=== PATIENT | female | born 1975 | race Caucasian/White ===

== ENCOUNTER 2024-10-25 08:02 | Day surgery (SDC) | payer BC ==
[2024-10-21 16:18] VITALS: BMI 36.1
--- NOTE | 2024-10-25 07:38 | P.GSHP ---
History of Present Illness H&P Date: 10/25/24 CHIEF COMPLAINT: GERD and colon screen HISTORY OF PRESENT ILLNESS: The patient is a 48-year-old female who presents with gastroesophageal reflux disease and need for colon screen. Upper and lower endoscopy were offered for further evaluation and management. PAST MEDICAL HISTORY: Please see list. PAST SURGICAL HISTORY: Please see list. MEDICATIONS: Please see list. ALLERGIES: Please see list. SOCIAL HISTORY: No illicit drug use FAMILY HISTORY: No reports of Crohn disease or ulcerative colitis. REVIEW OF ORGAN SYSTEMS: CONSTITUTIONAL: No reports of fevers or chills. GI: Denies any blood in stools or constipation. PHYSICAL EXAM: VITAL SIGNS: Stable GENERAL: Well-developed pleasant in no acute distress. HEENT: No scleral icterus. Extraocular movements grossly intact. Moist buccal mucosa. NECK: Supple without lymphadenopathy. CHEST: Unlabored respirations. Equal bilateral excursions. CARDIOVASCULAR: Regular rate and rhythm. Distal 2+ pulses. ABDOMEN: Soft, nondistended. MUSCULOSKELETAL: No clubbing, cyanosis, or edema. ASSESSMENT: 1. Gastroesophageal reflux disease 2. Colon screen. PLAN: 1. Recommend proceeding with an upper and lower endoscopy Past Medical History Past Medical History: Diabetes Mellitus Additional Past Medical History / Comment(s): HAVING ABD PAIN AND SUE BOWEL ISSUES History of Any Multi-Drug Resistant Organisms: None Reported Past Surgical History: Bariatric Surgery, Section, Cholecystectomy, Hysterectomy Additional Past Surgical History / Comment(s): SERVAL LIPOMA'S REMOVED. C-SEC X 6. COLONOSCOPY/EGD Past Anesthesia/Blood Transfusion Reactions: No Reported Reaction Smoking Status: Never smoker - Past Family History Father Family Medical History: Cancer Medications and Allergies Home Medications Medication Instructions Recorded Confirmed Type Cyanocobalamin [Vitamin B-12 1,000 mcg SQ QMONTHLY 10/21/24 10/21/24 History Injection] Gabapentin 300 mg PO BID 10/21/24 10/21/24 History LORazepam [Ativan] 1 mg PO DAILY 10/21/24 10/21/24 History LORazepam [Lorazepam] 0.5 mg PO DAILY PRN 10/21/24 10/21/24 History Liraglutide [Victoza 3-Bud] 1.8 mg SQ DAILY 10/21/24 10/21/24 History Venlafaxine HCl [Effexor XR] 225 mg PO HS 10/21/24 10/21/24 History Zolpidem Tartrate [Zolpidem 12.5 mg PO HS 10/21/24 10/21/24 History Tartrate ER] metFORMIN HCL 500 mg PO BID 10/21/24 10/21/24 History Allergies Allergy/AdvReac Type Severity Reaction Status Date / Time No Known Allergies Allergy Verified 10/21/24 16:11
[2024-10-25] MEDS ORDERED: LIDOCAINE 1% (10MG/ML) FOR IV START INTRADERMA PRN (08:22)
[2024-10-25] MEDS: LACTATED RINGERS 1,000 ML IV ONE (08:29)
[2024-10-25 08:37] VITALS: TEMP 97.9
[2024-10-25 08:42] LABS: Glucose,Whole Blood 89 mg/dL (70-110)
[2024-10-25] MEDS: LACTATED RINGERS 1,000 ML IV SCH (08:45)
[2024-10-25] MEDS ORDERED: PROPOFOL 10 MG/ML 20 ML VIAL IV ONE (08:47)
[2024-10-25] MEDS ORDERED: LIDOCAINE 1% INJ 10MG/ML (20 ML MDV) ONE (08:47)
--- NOTE | 2024-10-25 09:33 | P.PCN ---
Date of Procedure: 10/25/24 Description of Procedure: PREOPERATIVE DIAGNOSIS: Gastroesophageal reflux disease. Dysphagia Morbid obesity. 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 INDICATIONS: The patient is a 48-year-old female who presents with a history of dysphagia, including atypical chest pain with history of gastric bypass. Benefits and risks of the procedure were described. Informed consent was obtained. DESCRIPTION: The patient was brought into the endoscopy suite and laid in the left lateral decubitus position. After a timeout was confirmed, the procedure was initiated. An Olympus gastroscope was passed along the posterior oropharynx down to the distal esophagus where the squamocolumnar junction was unremarkable. Moderate tertiary contractions consistent with presbyesophagus was found. Moderate spasms along the distal esophagus was also found. The gastric pouch was entered. A gastrojejunal stricture of 15 mm was found as the adult gastroscope was 9.5 mm in size. A Witget balloon dilator was placed through the scope. The scope was reentered for balloon dilation of the gastrojejunal anastomosis. Final insufflation from 15 to 20 mm was performed with a total of 2 minutes including of the distal esophageal spasm. The scope was advanced up to 60 cm from the incisors into the Nicola limb. The mucosa of the gastrojejunal anastomosis was intact. No chronic gastrojejunal marginal ulcer was encountered. Cold forcep biopsies obtained of the esophagus, gastric pouch, jejunum. Features of jejunal diverticulosis also identified. No full-thickness injury was encountered. The GI tract was desufflated. The patient tolerated the procedure well. FINDINGS: Squamocolumnar junction unremarkable at 37 cm. Stricture of approximately 15 mm encountered. Moderate to severe tertiary contractions for presbyesophagus Distal esophageal spasm identified Cold forcep biopsies obtained of esophagus, gastric pouch and jejunum Jejunal diverticulosis identified. Gastric polyps, 3 cm. No chronic gastrojejunal ulceration encountered. Successful balloon dilatation to 20 mm. RECOMMENDATIONS: Upper endoscopy as needed.
--- NOTE | 2024-10-25 09:37 | P.PCN ---
Date of Procedure: 10/25/24 Description of Procedure: PREOPERATIVE DIAGNOSIS: Colonoscopy screening POSTOPERATIVE DIAGNOSIS: Tubular adenoma transverse colon Internal hemorrhoids, grade 2 OPERATION: Colonoscopy to the ileocecal valve and appendiceal orifice, cecum Colonoscopy with hot snare polypectomy SURGEON: Tali Garcia MD. ANESTHESIA: MAC. INDICATIONS: The patient is an 48-year-old female who presents for colon sick screening. Benefits and risks were described and informed consent was obtained. DESCRIPTION OF PROCEDURE: The patient had undergone Suprep. The patient had been brought into the operating room and laid in the left lateral decubitus position. After adequate intravenous sedation, the rectum was examined with 2% lidocaine jelly. External hemorrhoids were encountered. The rectal tone was within normal limits. No lesions were palpated in the rectal vault. An Olympus colonoscope was advanced however limited due to a longer than colon. Multiple maneuvers including nba wall pressure was attempted to see the cecum. The prep was good. No sigmoid diverticulosis was encountered. Colonic polyps were found and removed. No evidence of focal colitis was found. Retroflexion of the scope demonstrated grade 2 internal hemorrhoids without active bleeding or inflammation. The colon was desufflated. The patient had tolerated the procedure well. Withdrawal time was over 6 minutes. FINDINGS: Aronchick preparation quality scale 2 (1-5) Internal hemorrhoids, grade 2 External hemorrhoids, grade 2. No arteriovenous malformations. Highly redundant sigmoid colon requiring abdominal wall pressure. Nonvisualization of the cecum. No large sigmoid diverticulosis Removal of 1 polyps: - Snare polypectomy transverse colon, 8 mm tubulovillous adenoma. No focal colitis. RECOMMENDATIONS: Repeat colonoscopy in 3 years, 2027 Recommend barium enema to capture cecum due to highly redundant colon Plan - Discharge Summary Discharge Rx Participant: No New Discharge Prescriptions: Continue Venlafaxine HCl [Effexor XR] 225 mg PO HS Zolpidem Tartrate [Zolpidem Tartrate ER] 12.5 mg PO HS LORazepam 0.5 mg PO DAILY PRN PRN Reason: Anxiety Gabapentin 300 mg PO BID Cyanocobalamin [Vitamin B-12 Injection] 1,000 mcg SQ QMONTHLY Liraglutide [Victoza 3-Bud] 1.8 mg SQ DAILY LORazepam [Ativan] 1 mg PO DAILY metFORMIN HCL 500 mg PO BID Discharge Medication List Cyanocobalamin [Vitamin B-12 Injection] 1,000 mcg SQ QMONTHLY 10/21/24 [History] Gabapentin 300 mg PO BID 10/21/24 [History] LORazepam 0.5 mg PO DAILY PRN 10/21/24 [History] LORazepam [Ativan] 1 mg PO DAILY 10/21/24 [History] Liraglutide [Victoza 3-Bud] 1.8 mg SQ DAILY 10/21/24 [History] Venlafaxine HCl [Effexor XR] 225 mg PO HS 10/21/24 [History] Zolpidem Tartrate [Zolpidem Tartrate ER] 12.5 mg PO HS 10/21/24 [History] metFORMIN HCL 500 mg PO BID 10/21/24 [History] [facility](s[facility]Ref[facility] [place] [place] [facility] (Keep your original appointment time) Patient Instructions/Handouts: Esophageal Dilation (DC), Diverticulosis Diet (GEN), Colorectal Polyps (GEN) Activity/Diet/Wound Care/Special Instructions: Repeat colonoscopy 3 years, 2027 Recommend barium enema due to elongated colon, cecum not captured Discharge Disposition: HOME SELF-CARE
[2024-10-25 09:38] LABS: Glucose,Whole Blood 93 mg/dL (70-110)
[2024-10-25 09:50] VITALS: RESP 14
[2024-10-25 10:05] VITALS: BP 107/71; PULSE 58
== END 2024-10-25 10:36 | disposition home or self-care (01) ==
LOC: ORWHC2ENDO 08:02
PROVIDERS: ATTEND Surgery Plastic and Reconstructive Surgery
DX: Z12.11 Encounter for screening for malignant neoplasm of colon (principal); R13.10 Dysphagia, unspecified; D12.3 Benign neoplasm of transverse colon; K64.1 Second degree hemorrhoids; K57.10 Diverticulosis of small intestine without perforation or abscess without bleeding; K22.4 Dyskinesia of esophagus; E11.9 Type 2 diabetes mellitus without complications; Z79.84 Long term (current) use of oral hypoglycemic drugs; E66.01 Morbid (severe) obesity due to excess calories; Z98.84 Bariatric surgery status
CPT/HCPCS: 45385; 43249; J2003; J2704; C1726; 88305

== ENCOUNTER → 2024-10-25 | Outpatient (CLI) | payer BC ==
[2024-10-25 15:19] LABS: HCT 34.5 % (37.2-46.3); HGB 10.3 g/dL (12.0-15.0); MCH 23.5 pg (27.0-32.0); MCHC 29.9 g/dL (32.0-37.0); MCV 78.8 FL (80.0-97.0); Mean Platelet Volume 12.2 FL (9.5-12.2); NRBC Per 100 WBC 0 X 10*3/uL (0.00-0.01); Platelet Count 242 X 10*3/uL (140-440); RBC 4.38 X 10*6/uL (4.10-5.20); RDW 16.7 % (11.5-14.5); WBC 7.85 X 10*3/uL (4.50-10.00)
[2024-10-25 15:37] LABS: Prealbumin 13.1 mg/dL (18.0-42.0)
[2024-10-25 15:57] LABS: % Iron Saturation 5.07 (12.00-45.00); ALT 14 U/L (8-44); AST 26 U/L (13-35); Albumin/Globulin Ratio 1.67 Ratio (1.60-3.17); Alkaline Phosphatase 90 U/L (41-126); Blood Urea Nitrogen 5.6 mg/dL (9.0-27.0); Calcium 9.7 mg/dL (8.7-10.3); Carbon Dioxide 24.6 mmol/L (21.6-31.8); Chloride 104 mmol/L (96-109); Chol/HDL Ratio 4.06 Ratio; Ferritin 7.6 ng/mL (10.0-291.0); Globulin 2.4 g/dL (1.6-3.3); Glucose 82 mg/dL (70-110); Iron 25 UG/DL (50-170); LDL Cholesterol,Calculated 101.3 mg/dL (0.0-131.0); Magnesium 1.9 mg/dL (1.5-2.4); Phosphorus 3.5 mg/dL (2.4-5.1); Potassium 4.8 mmol/L (3.5-5.5); Sodium 139 mmol/L (135-145); Total Bilirubin 0.2 mg/dL (0.3-1.2); Total Iron Binding Capacity 493 UG/DL (228-460); Total Protein 6.4 g/dL (6.2-8.2)
[2024-10-26 13:48] LABS: Zinc, Serum 91 ug/dL (60-130)
[2024-10-27 08:25] LABS: Vit B1(Thiamine) 55 ug/L (38-122)
== END | disposition home or self-care (01) ==
LOC: LABWHC1 10:41
PROVIDERS: ATTEND Surgery Plastic and Reconstructive Surgery
DX: E66.01 Morbid (severe) obesity due to excess calories (principal); D50.8 Other iron deficiency anemias; E44.0 Moderate protein-calorie malnutrition; E45 Retarded development following protein-calorie malnutrition; E55.9 Vitamin D deficiency, unspecified; K74.1 Hepatic sclerosis; E89.1 Postprocedural hypoinsulinemia
CPT/HCPCS: 36415; 80053; 80061; 82306; 82525; 82607; 82728; 82746; 83036; 83540; 83550; 83735; 83970; 84100; 84134; 84255; 84425; 84443; 84590; 84630; 85027; 85610; 85730

== ENCOUNTER → 2024-10-27 | Outpatient (CLI) | payer BC ==
[2024-10-27 16:55] VITALS: BP 135/80; PULSE 78; RESP 16; TEMP 98.2; BMI 37.0
--- NOTE | 2024-10-27 17:33 | P.HPBAR ---
Bariatric H&P - History & Physicial H&P Date: 10/27/24 History & Physicial: Visit/CC: Patient initial contact: Initial weight: Initial weight in pounds: Height: 5 ft 10 in Initial BMI: Last weight: Current weight: 117.254 kg Current weight in pounds: 258.50 Current BMI: 37.0 [place] body weight (based on NIH guidelines): 68.18 kg Excess body weight loss: The patient is a 48 year-old F who presents for Bariatric Assessment. She was 400 pounds. Lowest 230 pounds. She is on the carnivore. She eats 60 grams. Eat 100 to 120 grams. She is looking into a panniculectomy. She has neurologist. PCP given skin treatments. Trial Justice. Needs iron infusion. She does not take a MVI. Get b12 injection. Needs MVI. Food journal. Pain is from constipation. 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 Is a diabetic. Not doing well. Has trouble with exercise. Sleep apnea. NEck surgeir. Nystatin powder. Drinks 160 oz. Past Medical History Past Medical History: Diabetes Mellitus Additional Past Medical History / Comment(s): HAVING ABD PAIN AND SUE BOWEL ISSUES History of Any Multi-Drug Resistant Organisms: None Reported Past Surgical History: Bariatric Surgery, Section, Cholecystectomy, Hysterectomy Additional Past Surgical History / Comment(s): Several LIPOMA'S REMOVED. C-SEC X 6. COLONOSCOPY/EGD. Gastric Bypass-2001 Past Anesthesia/Blood Transfusion Reactions: No Reported Reaction Past Psychological History: Anxiety Smoking Status: Never smoker Past Alcohol Use History: Rare Past Drug Use History: None Reported - Past Family History Father Family Medical History: Cancer Surgical - Exam Vital Signs Temp Pulse Resp BP 98.2 F 78 16 135/80 10/27/24 16:44 10/27/24 16:44 10/27/24 16:44 10/27/24 16:44 Bariatric Checklist Checklist: Plan: Checklist: EGD: 1. Hiatal hernia: 2. H. Pylori: HgbA1c: Vitamin D: Smoking: Primary care physician referral: [facility] Psychiatry clearance: Cardiology clearance: Sleep study: Diet journal: VTE risk score: VTE risk level: Rehab needs at discharge:
== END ==
LOC: BARWHC3 16:01
PROVIDERS: ATTEND Surgery Plastic and Reconstructive Surgery
DX: E66.1 Drug-induced obesity (principal); Z68.37 Body mass index [BMI] 37.0-37.9, adult
CPT/HCPCS: 99211

== ENCOUNTER → 2024-11-11 | Outpatient (CLI) | payer BC ==
--- NOTE | 2024-11-11 11:35 | FL ---
EXAMINATION TYPE: FL barium enema w air contrast DATE OF EXAM: 11/11/2024 COMPARISON: None CLINICAL INDICATION: Female, 48 years old with history of K56.2 Valvulus Z12.11 screening; [facility], TECHNIQUE: A double contrast barium enema study is performed. A total of 6 minutes and 54 seconds o f fluoroscopic time was utilized during procedure and 52 images obtained. Total dose area product (D AP) in uGy*m?, mGy*cm? (or similar): Not provided. FINDINGS: Motion Picture Projectionist Apprentice view of the abdomen shows overall non-obstructive bowel gas pattern. Small amount of retained fecal debris limits assessment for small polyps. No annular constricting les ion or obstruction. No significant diverticular disease is noted. Appendix was filled and appeared normal. Small segment of terminal ileum has a normal appearance. Th ere is marked redundancy of the colon. IMPRESSION: 1. Redundancy of the colon. 2. Limited assessment for small polyps due to retained fecal debris throughout the colon. No large po lypoid lesion, annular constricting lesion or obstruction. [facility], , 11/11/2024 11:32 AM
== END | disposition home or self-care (01) ==
LOC: RADFLMAIN 08:08
PROVIDERS: ATTEND Surgery Plastic and Reconstructive Surgery
DX: Z12.11 Encounter for screening for malignant neoplasm of colon (principal); K56.2 Volvulus; Q43.8 Other specified congenital malformations of intestine
CPT/HCPCS: 74280

== ENCOUNTER → 2025-01-05 | Outpatient (CLI) | payer BC ==
[2025-01-05 17:28] VITALS: BP 116/82; PULSE 67; RESP 16; TEMP 98.1; BMI 34.9
--- NOTE | 2025-01-05 17:48 | P.BASOAP ---
Subjective Progress Note Date: 01/05/25 She is looking colectomy. No recent EKG. Wants colectomy. Needs EKG - colectomy prior to panniculectomy. SHe has changed diet. Repeat labs. Not Hgb A1c or repeat lehman labs needed. Journal shows 150 grams to 170 grams. Water 120 oz. then cut down protein advised. Emily. Objective - Vital Signs Vital signs: Vital Signs Temp 98.1 F 01/05/25 17:25 Pulse 67 01/05/25 17:25 Resp 16 01/05/25 17:25 BP 116/82 01/05/25 17:25 Pulse Ox FiO2 Intake & Output 01/04/25 01/05/25 01/05/25 18:59 06:59 18:59 Weight 110.677 kg Assessment/Plan Plan: Date: 01/05/25 Initial Weight: 181.437 kg Initial BMI: 57.4 Current Weight: 110.677 kg Current BMI: 34.9 Type of Surgery: Nicola-en-Y Gastric Bypass Total Volume in Band: Previous Volume: Volume Removed: Volume Added: Band Size:
== END ==
LOC: BARWHC3 15:53
PROVIDERS: ATTEND Surgery Plastic and Reconstructive Surgery
DX: E66.01 Morbid (severe) obesity due to excess calories (principal); Z68.34 Body mass index [BMI] 34.0-34.9, adult
CPT/HCPCS: 99211

== ENCOUNTER → 2025-03-07 | Outpatient (CLI) | payer BC | END | disposition home or self-care (01) | LOC: LABPAT 12:49 | PROVIDERS: ATTEND Surgery Plastic and Reconstructive Surgery | DX: Z01.812 Encounter for preprocedural laboratory examination (principal); D50.9 Iron deficiency anemia, unspecified | CPT/HCPCS: 86850; 86900; 86901 ==